=== PATIENT | female | born 2000 | race Caucasian/White ===

== ENCOUNTER 2019-12-09 10:08 | Inpatient (IN) ==
[2019-12-09] MEDS ORDERED: DULCOLAX PR PRN (12:41)
[2019-12-09] MEDS ORDERED: SENOKOT PO PRN (12:41)
[2019-12-09] MEDS ORDERED: MAALOX PLUS LIQUID PO PRN (12:41)
[2019-12-09] MEDS ORDERED: ROBAXIN PO PRN (12:41)
[2019-12-09] MEDS ORDERED: DESYREL PO PRN (12:41)
[2019-12-09] MEDS ORDERED: IMODIUM PO PRN (12:41)
[2019-12-09] MEDS ORDERED: D5W 1,000 ML IV PRN (12:41)
[2019-12-09] MEDS ORDERED: ZOFRAN IV PRN (12:41)
[2019-12-09] MEDS ORDERED: MOTRIN PO PRN (12:41)
[2019-12-09] MEDS ORDERED: ZOFRAN ODT PO PRN (12:41)
[2019-12-09] MEDS ORDERED: TYLENOL PO PRN (12:41)
[2019-12-09] MEDS ORDERED: SINEMET 25/100 PO PRN (12:41)
[2019-12-09] MEDS ORDERED: SEROQUEL PO PRN (12:41)
[2019-12-09] MEDS ORDERED: BENTYL PO PRN (12:41)
[2019-12-09] MEDS ORDERED: TUBERSOL ID ONE (12:41)
[2019-12-09] MEDS ORDERED: NICODERM PATCH TD PRN (12:41)
[2019-12-09] MEDS ORDERED: PHENOBARBITAL IV PRN (12:41)
[2019-12-09] MEDS ORDERED: LIBRIUM PO PRN (12:41)
[2019-12-09 13:37] LABS: HEMATOCRIT 38.7 % (37.0-47.0); HEMOGLOBIN 12.3 g/dL (12.0-16.0); MCH 28.7 PG (27-31); MCHC 31.8 g/dL (33-37); MCV 90.4 FL (81-99); MPV 9.3 FL (7.4-10.4); RBC 4.28 XMIL (4.2-5.4); RDW 13.9 % (11.5-14.5); WBC 5.57 X1000 (4.8-10.8)
[2019-12-09 13:45] LABS: AMYLASE 59 U/L (20-200); LIPASE 27 U/L (13-60)
[2019-12-09 13:50] LABS: AGAP 10; ALKALINE PHOSPHATASE 66 U/L (32-104); BUN 4 mg/dL (8-22); CALCIUM 9.3 mg/dL (8.8-10.2); CHLORIDE 106 mmol/L (98-107); COSMO 276; CREATININE 0.4 mg/dL (0.5-0.9); ESTIMATED GFR > 60; GLUCOSE 98 mg/dL (70-104); GOT 19 U/L (10-30); GPT 19 U/L (10-36); POTASSIUM 4.1 mmol/L (3.5-5.1); SODIUM 140 mmol/L (136-145); TCO2 24 mmol/L (25-35)
[2019-12-09 14:25] LABS: INR 0.92; PROTIME 12.8 Seconds (11.0-16.0)
[2019-12-09 15:17] LABS: URINE SOURCE CLEAN CATCH
[2019-12-09 15:20] LABS: BILIRUBIN URINE NEGATIVE (NEGATIVE); BLOOD URINE NEGATIVE (NEGATIVE); COLOR YELLOW; GLUCOSE URINE NEGATIVE (NEGATIVE); KETONE URINE NEGATIVE (NEGATIVE); LEUKOCYTES URINE NEGATIVE (NEGATIVE); NITRITE URINE NEGATIVE (NEGATIVE); PH URINE 8.5; PROTEIN URINE NEGATIVE (NEGATIVE); SP GRAVITY URINE 1.009; TURBIDITY URINE CLEAR (CLEAR); UROBILINOGEN URINE NORMAL (NORMAL)
[2019-12-09 15:21] LABS: UR EPITHELIAL CELLS <10 /HPF (<10); URINE BACTERIA NEGATIVE /HPF; URINE RBC <10 /HPF (<10); URINE WBC <10 /HPF (<10)
[2019-12-09] MEDS: SUBOXONE 2 MG/0.5 MG FILM SL SCH (15:23)
[2019-12-09 15:30] LABS: UR AMPHETAMINES QUAL NONE DETECTED (NONE DETECT); UR BARBITUATES QUAL NONE DETECTED (NONE DETECT); UR BENZODIAZEPIN QUAL NONE DETECTED (NONE DETECT); UR CANNABINOIDS QUAL NONE DETECTED (NONE DETECT); UR COCAINE QUAL NONE DETECTED (NONE DETECT); UR METHADONE QUAL NONE DETECTED (NONE DETECT); UR METHAMPHETAMINE QUAL NONE DETECTED (NONE DETECT); UR OPIATES QUAL NONE DETECTED (NONE DETECT); UR OXYCODONE QUAL PRESUMPTIVE POSITIVE (NONE DETECT); UR PCP QUAL NONE DETECTED (NONE DETECT); UR PROPOXYPHENE QUAL NONE DETECTED (NONE DETECT); UR TCA QUAL NONE DETECTED (NONE DETECT)
[2019-12-09] MEDS ORDERED: FLU VACCINE IM ONE (18:01)
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
[2019-12-09] MEDS: ATARAX PO PRN (22:53)
[2019-12-10] MEDS: SUBOXONE 2 MG/0.5 MG FILM SL SCH ×2 (03:24→16:32)
[2019-12-10] MEDS: PROTONIX PO SCH (06:06)
[2019-12-10] MEDS: VITAMIN B-1 PO SCH (09:46)
[2019-12-10] MEDS: FOLIC ACID PO SCH (09:46)
[2019-12-10] MEDS: THERA M PLUS PO SCH (09:46)
[2019-12-10] MEDS: ATARAX PO PRN (09:52)
[2019-12-10] MEDS ORDERED: SUBOXONE 2 MG/0.5 MG FILM SL SCH (15:00)
--- NOTE | 2019-12-11 00:09 | PROGRESS NOTE ---
DATE: 12/10/2019 SUBJECTIVE: Patient notes that she is feeling a little bit better. Denies any fevers or chills. Denies cough, congestion. PHYSICAL EXAMINATION: Vital Signs: Reviewed and stable. Temperature 97 degrees, pulse 88, respiratory rate 18, blood pressure 119/65. General: She is awake, alert, oriented. Patient is in no current respiratory distress. Neck: Supple. Cardiovascular: Regular rate. Chest: Clear, nonlabored. Abdomen: Soft, nondistended, nontender. Extremities: Moves all extremities. Neurologic: No focal neurological changes. Skin: Warm, dry. No rashes. ASSESSMENT: 1. Nausea and vomiting. 2. Abdominal pain. 3. Myalgias. 4. Paresthesias. 5. Paroxysmal sweating. 6. Opiate abuse withdrawal and stabilization. PLAN: We are going to continue to wean Suboxone. I will decrease to 2 mg twice daily today and will follow. Continue counseling. Further orders as needed. cc: Marlon Gilmore MD
[2019-12-11] MEDS: SUBOXONE 2 MG/0.5 MG FILM SL SCH (04:19)
[2019-12-11] MEDS: PROTONIX PO SCH (06:16)
[2019-12-11] MEDS: SUBUTEX SL SCH (09:41)
[2019-12-11] MEDS: ATARAX PO PRN (09:41)
[2019-12-11] MEDS: THERA M PLUS PO SCH (09:41)
[2019-12-11] MEDS: FOLIC ACID PO SCH (09:41)
[2019-12-11] MEDS: VITAMIN B-1 PO SCH (09:41)
--- NOTE | 2019-12-12 00:03 | PROGRESS NOTE ---
DATE: 12/11/2019 SUBJECTIVE: The patient notes she is feeling a lot better. Denies any fevers or chills. Denies cough. OBJECTIVE: Vital signs reviewed. She is awake, alert. She is in no current respiratory distress. She is afebrile. Pulse 61, respiratory rate 18, BP 106/55.General: The patient is pleasant. HEENT: Normocephalic. Neck supple. Cardiovascular: Regular rate. Chest clear, nonlabored. Abdomen soft, nondistended. Extremities: Moves all extremities. Neurologic: No changes. ASSESSMENT: 1. Nausea and vomiting. 2. Abdominal pain. 3. Myalgias. 4. Paresthesias. 5. Paroxysmal sweating. 6. Substance abuse, withdrawal and stabilization. PLAN: Continue the patient in the hospital. Continue to follow. Continue to wean as tolerated. Further orders as needed. cc: Marlon Gilmore MD
[2019-12-12] MEDS: SUBUTEX SL SCH (00:31)
[2019-12-12] MEDS: PROTONIX PO SCH (06:26)
[2019-12-12] MEDS ORDERED: SUBUTEX SL PRN (08:14)
[2019-12-12] MEDS ORDERED: SUBUTEX SL SCH (09:00)
[2019-12-12] MEDS: VITAMIN B-1 PO SCH (10:14)
[2019-12-12] MEDS: THERA M PLUS PO SCH (10:14)
[2019-12-12] MEDS: FOLIC ACID PO SCH (10:14)
--- NOTE | 2019-12-13 01:57 | PROGRESS NOTE ---
DATE: 12/12/2019 SUBJECTIVE: Patient notes that overall is starting to feel better. Denies any fevers, chills. Denies cough, congestion. PHYSICAL EXAMINATION: Vital Signs: Reviewed. Temperature 98 degrees, pulse 67, respiratory rate 18, BP 106/55. General: Patient is pleasant. She is in no respiratory distress. HEENT: Normocephalic. Neck: Supple. Cardiovascular: Regular rate. Chest: Clear. Abdomen: Soft. Extremities: Moves all extremities. Neurologic: No focal changes. Skin: Warm and dry. No rashes. ASSESSMENT: 1. Nausea and vomiting. 2. Abdominal pain. 3. Myalgias. 4. Paresthesias. 5. Paroxysmal sweating. 6. Alcohol abuse occasionally. 7. Opiate abuse, withdrawal and stabilization. 8. Chronic tobacco abuse. PLAN: We will continue patient in the hospital. Continue counseling. We will change Subutex to 1 mg b.i.d. today as needed. If she tolerates, hopefully to rehab over the next 1 [*]. cc: Marlon Gilmore MD
[2019-12-13] MEDS: PROTONIX PO SCH (06:18)
[2019-12-13 08:08] VITALS: BP 138/87
[2019-12-13] MEDS: FOLIC ACID PO SCH (10:23)
[2019-12-13] MEDS: THERA M PLUS PO SCH (10:23)
[2019-12-13] MEDS: VITAMIN B-1 PO SCH (10:23)
[2019-12-13] MEDS: ATARAX PO PRN (10:34)
--- NOTE | 2019-12-14 05:21 | DISCHARGE SUMMARY ---
ADMISSION DATE: 12/09/2019 DISCHARGE DATE: 12/13/2019 DISCHARGE DIAGNOSIS: 1. Nausea, vomiting. 2. Abdominal pain. 3. Myalgias. 4. Paresthesias. 5. Paroxysmal sweating. 6. Opiate abuse, withdrawal and stabilization. CONSULTATIONS: None. PROCEDURES: None. BRIEF HOSPITAL COURSE: Patient was admitted to the hospital, treated in the usual fashion, placed on Suboxone with a continue on weaning dose. On discharge she is awake, alert. She is oriented. She is in no distress. Therefore, she will be discharged home. She will follow up outpatient with further inpatient treatment [*]. TIME SPENT: Greater than 30 minutes was spent in total care. cc: Marlon Gilmore MD
== END 2019-12-13 10:46 | DRG 897 ==
LOC: P.DIRADM 11:20 → P.MEDSURG 12:03
PROVIDERS: ADMIT Family Medicine; ATTEND Family Medicine